=== PATIENT | female | born 1990 | race Caucasian/White ===

== ENCOUNTER 2021-12-23 14:57 | Inpatient (IN) ==
[2021-12-23] MEDS ORDERED: Haloperidol 5 mg/ml SDV IV/IM 5 MG/ML AMP IV ONE (15:09)
[2021-12-23] MEDS ORDERED: LORazepam 2 mg VIAL 1 ml IV ONE (15:09)
[2021-12-23] MEDS ORDERED: Lactated Ringers 1000 ml BAG 1,000 ML IV ONE (15:11)
[2021-12-23 15:30] LABS: ABS Lymphocytes 1.9 10^3/ul (1.0-4.8); ABS Neutrophils 8.6 10^3/ul (1.5-7.7); Eosinophil % 0.3 %; Hematocrit 44 % (35-47); Hemoglobin 14.6 g/dL (12.0-16.0); Lymphocyte % 16.7 %; Mean Corpuscular HGB Conc 33 g/dL (31-36); Mean Corpuscular Hemoglobin 30 pg (27-31); Mean Corpuscular Volume 92 fL (80-97); Platelet Count 293 10^3/uL (150-450); Red Blood Count 4.79 10^6 /uL (3.70-4.87); Red Cell Distribution Width 13 % (10-15); White Blood Count 11.6 10^3/uL (3.5-10.8)
[2021-12-23 15:54] LABS: High Sens Troponin Baseline 3 pg/mL (<15)
[2021-12-23 16:05] LABS: ALT 16 U/L (7-52); AST 17 U/L (13-39); Albumin 4.5 g/dL (3.2-5.2); Alcohol, S < 13 mg/dL (<13); Alkaline Phosphatase 65 U/L (35-149); Anion Gap 10 mmol/L (2-11); Blood Urea Nitrogen 7 mg/dL (6-24); CO2 Carbon Dioxide 24 mmol/L (22-32); Calcium 9.1 mg/dL (8.6-10.3); Chloride 103 mmol/L (101-111); Globulin 2.2 g/dL (2-4); Glucose 120 mg/dL (70-100); Magnesium 1.7 mg/dL (1.9-2.7); Potassium 3.5 mmol/L (3.5-5.0); Sodium 137 mmol/L (135-145); Total Protein 6.7 g/dL (6.4-8.9); eGFR CKD-EPI 111.3 (>60)
[2021-12-23 16:14] LABS: TSH Ultra Thyroid Stim Horm 0.74 mcIU/mL (0.34-5.60)
[2021-12-23 17:13] LABS: High Sensitivity Troponin 1 Hr 3 pg/mL (<15)
[2021-12-24 01:59] LABS: Urine Appearance Cloudy; Urine Bilirubin Negative (Negative); Urine Blood 1+ (Negative); Urine Color Yellow; Urine Glucose Negative (Negative); Urine Ketones Negative (Negative); Urine Nitrite Negative (Negative); Urine Protein Negative (Negative); Urine Specific Gravity 1.006 (1.002-1.030); Urine Urobilinogen Negative (Negative)
[2021-12-24] MEDS ORDERED: Nicotine PATCH 21 MG/24 HR PATCH TRANSDERM ONE (02:07)
[2021-12-24 02:08] LABS: Urine Bacteria 1+ (Absent); Urine Red Blood Cell Trace(0-2/hpf) (Absent); Urine Squamous Epithelial Cell Present (Absent); Urine White Blood Cell Trace(0-5/hpf) (Absent)
[2021-12-24 02:28] LABS: Urine Benzodiazepine Screen None Detected (None Detect); Urine Cannabinoids Screen Presumptive Positive (None Detect); Urine Opiates Screen None Detected (None Detect)
[2021-12-24] MEDS ORDERED: LORazepam 2 mg VIAL 1 ml IM ONE (02:58)
[2021-12-24] MEDS ORDERED: Lorazepam PYXIS KEY PRN (02:58)
[2021-12-24] MEDS ORDERED: Ziprasidone IM 20 mg VIAL 1 ml VIAL IM ONE (02:58)
[2021-12-24] MEDS ORDERED: Ziprasidone IM 20 mg VIAL 1 ml VIAL ONE (02:59)
[2021-12-24] MEDS: Nicotine GUM 4MG FRUIT FLAVOR PO PRN (08:23)
[2021-12-24] MEDS ORDERED: PERPHENAZINE 16 MG PO SCH (09:15)
[2021-12-24 10:06] LABS: Urine Benzodiazepine Screen None Detected (None Detect); Urine Buprenorphine Screen None Detected (None Detect); Urine Cannabinoids Screen Presumptive Positive (None Detect); Urine Fentanyl Screen None Detected (None Detect); Urine Hydrocodone Screen None Detected (None Detect); Urine Opiates Screen None Detected (None Detect)
[2021-12-24 11:50] LABS: Lithium < 0.10 mmol/L (0.6-1.2)
[2021-12-24] MEDS: Nicotine Lozenge mini 4 MG LOZNG.MINI MT PRN ×2 (16:26→20:22)
[2021-12-24] MEDS: Nicotine PATCH 21 MG/24 HR PATCH TRANSDERM SCH (16:31)
[2021-12-24] MEDS ORDERED: CMCS: Lithium Carb ER 300 mg TAB(NF) PO SCH (21:00)
[2021-12-25 08:37] LABS: HDL Cholesterol 61.3 mg/dL
[2021-12-25] MEDS: Nicotine PATCH 21 MG/24 HR PATCH TRANSDERM SCH (09:32)
[2021-12-25] MEDS: Al Hydrox/Mg Hydrox/Simet LIQ 30 ML UDC PO PRN ×3 (09:33→21:39)
[2021-12-25] MEDS: CMC:Lithium Carb ER 300 mg TAB(NF) PO SCH ×2 (12:01→22:56)
[2021-12-25] MEDS: Lithium Carbonate ER 450mg TAB PO SCH ×2 (12:01→22:56)
[2021-12-26] MEDS: CMC:Lithium Carb ER 300 mg TAB(NF) PO SCH ×2 (08:52→22:01)
[2021-12-26] MEDS: Nicotine PATCH 21 MG/24 HR PATCH TRANSDERM SCH (08:52)
[2021-12-26] MEDS: Lithium Carbonate ER 450mg TAB PO SCH ×2 (08:52→22:01)
[2021-12-26] MEDS: Nicotine Lozenge mini 4 MG LOZNG.MINI MT PRN ×2 (13:11→20:12)
[2021-12-27] MEDS: CMC:Lithium Carb ER 300 mg TAB(NF) PO SCH ×2 (09:07→21:11)
[2021-12-27] MEDS: Nicotine PATCH 21 MG/24 HR PATCH TRANSDERM SCH (09:07)
[2021-12-27] MEDS: Lithium Carbonate ER 450mg TAB PO SCH ×2 (09:07→21:11)
[2021-12-27] MEDS: Nicotine Lozenge mini 4 MG LOZNG.MINI MT PRN ×2 (09:44→15:40)
[2021-12-27] MEDS: Al Hydrox/Mg Hydrox/Simet LIQ 30 ML UDC PO PRN (17:47)
[2021-12-28] MEDS: Nicotine Lozenge mini 4 MG LOZNG.MINI MT PRN ×4 (05:30→18:31)
[2021-12-28] MEDS: Lithium Carbonate ER 450mg TAB PO SCH ×2 (09:12→21:16)
[2021-12-28] MEDS: CMC:Lithium Carb ER 300 mg TAB(NF) PO SCH ×2 (09:12→21:16)
[2021-12-28] MEDS: Nicotine PATCH 21 MG/24 HR PATCH TRANSDERM SCH (09:13)
[2021-12-29] MEDS: Nicotine Lozenge mini 4 MG LOZNG.MINI MT PRN ×4 (03:11→22:05)
[2021-12-29] MEDS: Nicotine PATCH 21 MG/24 HR PATCH TRANSDERM SCH (09:45)
[2021-12-29] MEDS: CMC:Lithium Carb ER 300 mg TAB(NF) PO SCH ×2 (09:45→20:17)
[2021-12-29] MEDS: Lithium Carbonate ER 450mg TAB PO SCH ×2 (09:45→20:17)
[2021-12-30] MEDS: Nicotine Lozenge mini 4 MG LOZNG.MINI MT PRN (04:21)
[2021-12-30] MEDS: Lithium Carbonate ER 450mg TAB PO SCH ×2 (08:01→19:24)
[2021-12-30] MEDS: Nicotine PATCH 21 MG/24 HR PATCH TRANSDERM SCH (08:02)
[2021-12-30] MEDS: CMC:Lithium Carb ER 300 mg TAB(NF) PO SCH ×2 (08:02→19:21)
[2021-12-31] MEDS: Nicotine Lozenge mini 4 MG LOZNG.MINI MT PRN (00:16)
[2021-12-31] MEDS: Lithium Carbonate ER 450mg TAB PO SCH ×3 (09:41→21:04)
[2021-12-31] MEDS: CMC:Lithium Carb ER 300 mg TAB(NF) PO SCH ×3 (09:41→21:04)
[2021-12-31] MEDS: Nicotine PATCH 21 MG/24 HR PATCH TRANSDERM SCH (09:41)
[2022-01-01] MEDS: Lithium Carbonate ER 450mg TAB PO SCH ×2 (08:43→21:17)
[2022-01-01] MEDS: Nicotine GUM 4MG FRUIT FLAVOR PO PRN ×3 (08:43→18:12)
[2022-01-01] MEDS: CMC:Lithium Carb ER 300 mg TAB(NF) PO SCH ×2 (08:43→21:17)
[2022-01-01] MEDS: Nicotine PATCH 21 MG/24 HR PATCH TRANSDERM SCH (08:44)
[2022-01-02] MEDS: Nicotine GUM 4MG FRUIT FLAVOR PO PRN ×5 (06:03→18:51)
[2022-01-02] MEDS: Lithium Carbonate ER 450mg TAB PO SCH ×2 (09:00→20:18)
[2022-01-02] MEDS: CMC:Lithium Carb ER 300 mg TAB(NF) PO SCH ×2 (09:00→20:17)
[2022-01-02] MEDS: Nicotine PATCH 21 MG/24 HR PATCH TRANSDERM SCH (09:09)
[2022-01-02] MEDS: Senna TAB 8.6 mg TAB PO SCH (14:51)
[2022-01-03] MEDS: Lithium Carbonate ER 450mg TAB PO SCH ×2 (09:01→21:29)
[2022-01-03] MEDS: Senna TAB 8.6 mg TAB PO SCH (09:03)
[2022-01-03] MEDS: CMC:Lithium Carb ER 300 mg TAB(NF) PO SCH ×2 (09:03→21:29)
[2022-01-03] MEDS: Nicotine PATCH 21 MG/24 HR PATCH TRANSDERM SCH (09:05)
[2022-01-03] MEDS: Nicotine GUM 4MG FRUIT FLAVOR PO PRN ×3 (10:10→16:25)
[2022-01-03] MEDS: Nicotine Lozenge mini 4 MG LOZNG.MINI MT PRN (17:56)
[2022-01-04] MEDS: Nicotine GUM 4MG FRUIT FLAVOR PO PRN ×2 (00:49→17:35)
[2022-01-04] MEDS: Lithium Carbonate ER 450mg TAB PO SCH ×4 (09:01→23:51)
[2022-01-04] MEDS: CMC:Lithium Carb ER 300 mg TAB(NF) PO SCH ×4 (09:02→20:40)
[2022-01-04] MEDS: Senna TAB 8.6 mg TAB PO SCH (09:04)
[2022-01-04] MEDS: Nicotine PATCH 21 MG/24 HR PATCH TRANSDERM SCH (09:04)
[2022-01-04] MEDS: Al Hydrox/Mg Hydrox/Simet LIQ 30 ML UDC PO PRN (16:44)
[2022-01-05] MEDS: Lithium Carbonate ER 450mg TAB PO SCH ×4 (00:16→20:29)
[2022-01-05] MEDS: CMC:Lithium Carb ER 300 mg TAB(NF) PO SCH ×3 (06:50→20:29)
[2022-01-05] MEDS: Senna TAB 8.6 mg TAB PO SCH (07:54)
[2022-01-05] MEDS: Nicotine PATCH 21 MG/24 HR PATCH TRANSDERM SCH (07:54)
[2022-01-05] MEDS: Nicotine Lozenge mini 4 MG LOZNG.MINI MT PRN (16:43)
[2022-01-05 19:37] LABS: Calcium 9.1 mg/dL (8.6-10.3); Lithium 0.75 mmol/L (0.6-1.2); Potassium 4.1 mmol/L (3.5-5.0); Total Bilirubin 0.5 mg/dL (0.2-1.0)
[2022-01-06] MEDS: Senna TAB 8.6 mg TAB PO SCH (07:14)
[2022-01-06] MEDS: Lithium Carbonate ER 450mg TAB PO SCH ×2 (07:14→20:04)
[2022-01-06] MEDS: CMC:Lithium Carb ER 300 mg TAB(NF) PO SCH ×2 (07:15→20:04)
[2022-01-06] MEDS: Nicotine PATCH 21 MG/24 HR PATCH TRANSDERM SCH (07:30)
[2022-01-06] MEDS: Nicotine GUM 4MG FRUIT FLAVOR PO PRN (16:51)
[2022-01-06] MEDS: Nicotine Lozenge mini 4 MG LOZNG.MINI MT PRN (19:12)
[2022-01-07] MEDS: Senna TAB 8.6 mg TAB PO SCH (08:07)
[2022-01-07] MEDS: CMC:Lithium Carb ER 300 mg TAB(NF) PO SCH ×2 (08:07→19:23)
[2022-01-07] MEDS: Lithium Carbonate ER 450mg TAB PO SCH ×2 (08:07→19:23)
[2022-01-07] MEDS: Nicotine PATCH 21 MG/24 HR PATCH TRANSDERM SCH (09:10)
[2022-01-07] MEDS: Nicotine GUM 4MG FRUIT FLAVOR PO PRN (19:25)
[2022-01-07] MEDS: Al Hydrox/Mg Hydrox/Simet LIQ 30 ML UDC PO PRN (20:20)
[2022-01-08] MEDS: Nicotine PATCH 21 MG/24 HR PATCH TRANSDERM SCH (09:50)
[2022-01-08] MEDS: Nicotine Lozenge mini 4 MG LOZNG.MINI MT PRN ×2 (09:50→12:20)
[2022-01-08] MEDS: Senna TAB 8.6 mg TAB PO SCH (10:04)
[2022-01-08] MEDS: CMC:Lithium Carb ER 300 mg TAB(NF) PO SCH ×2 (10:41→21:46)
[2022-01-08] MEDS: Lithium Carbonate ER 450mg TAB PO SCH (10:41)
[2022-01-08] MEDS: Al Hydrox/Mg Hydrox/Simet LIQ 30 ML UDC PO PRN (12:20)
[2022-01-08] MEDS: Nicotine GUM 4MG FRUIT FLAVOR PO PRN (15:42)
[2022-01-08] MEDS ORDERED: PERPHENAZINE 8 MG PO SCH (21:00)
[2022-01-09] MEDS: Nicotine GUM 4MG FRUIT FLAVOR PO PRN ×5 (04:50→20:38)
[2022-01-09] MEDS: Nicotine PATCH 21 MG/24 HR PATCH TRANSDERM SCH (08:14)
[2022-01-09] MEDS: Senna TAB 8.6 mg TAB PO SCH (08:15)
[2022-01-09] MEDS: CMC:Lithium Carb ER 300 mg TAB(NF) PO SCH (20:36)
[2022-01-09] MEDS: CMCS: Perphenazine 8 mg TAB (NF) PO SCH (20:38)
[2022-01-10] MEDS: Nicotine Lozenge mini 4 MG LOZNG.MINI MT PRN ×2 (11:00→13:40)
[2022-01-10] MEDS: Senna TAB 8.6 mg TAB PO SCH (11:00)
[2022-01-10] MEDS: Nicotine PATCH 21 MG/24 HR PATCH TRANSDERM SCH (11:01)
[2022-01-10] MEDS: CMCS: Perphenazine 8 mg TAB (NF) PO SCH (20:36)
[2022-01-10] MEDS: CMC:Lithium Carb ER 300 mg TAB(NF) PO SCH (20:36)
[2022-01-10] MEDS: Nicotine GUM 4MG FRUIT FLAVOR PO PRN (20:38)
[2022-01-11] MEDS: Nicotine PATCH 21 MG/24 HR PATCH TRANSDERM SCH (08:54)
[2022-01-11] MEDS: Senna TAB 8.6 mg TAB PO SCH (08:55)
[2022-01-11] MEDS: Nicotine GUM 4MG FRUIT FLAVOR PO PRN (08:55)
[2022-01-11] MEDS: Nicotine Lozenge mini 4 MG LOZNG.MINI MT PRN (17:43)
[2022-01-11] MEDS: CMC:Lithium Carb ER 300 mg TAB(NF) PO SCH (20:27)
[2022-01-11] MEDS: CMCS: Perphenazine 8 mg TAB (NF) PO SCH (20:28)
[2022-01-12] MEDS: Senna TAB 8.6 mg TAB PO SCH (09:54)
[2022-01-12] MEDS: Nicotine PATCH 21 MG/24 HR PATCH TRANSDERM SCH (09:55)
[2022-01-12] MEDS: Nicotine GUM 4MG FRUIT FLAVOR PO PRN ×3 (09:56→18:53)
[2022-01-12] MEDS: CMCS: Perphenazine 8 mg TAB (NF) PO SCH (19:52)
[2022-01-12] MEDS: CMC:Lithium Carb ER 300 mg TAB(NF) PO SCH (19:53)
[2022-01-13] MEDS: Nicotine PATCH 21 MG/24 HR PATCH TRANSDERM SCH (07:41)
[2022-01-13] MEDS: Senna TAB 8.6 mg TAB PO SCH (07:42)
[2022-01-13] MEDS: Nicotine GUM 4MG FRUIT FLAVOR PO PRN (12:38)
[2022-01-13] MEDS: Al Hydrox/Mg Hydrox/Simet LIQ 30 ML UDC PO PRN (12:38)
[2022-01-13] MEDS: CMC:Lithium Carb ER 300 mg TAB(NF) PO SCH (20:30)
[2022-01-13] MEDS: CMCS: Perphenazine 8 mg TAB (NF) PO SCH (20:32)
[2022-01-14] MEDS: Nicotine GUM 4MG FRUIT FLAVOR PO PRN (09:09)
[2022-01-14] MEDS: Senna TAB 8.6 mg TAB PO SCH (09:13)
[2022-01-14] MEDS: Nicotine PATCH 21 MG/24 HR PATCH TRANSDERM SCH (09:13)
[2022-01-14 09:58] VITALS: BP 119/54
== END 2022-01-14 14:35 | disposition home or self-care (01) | DRG 885 ==
LOC: ED 14:57 → EDHOLD 12-24 09:07 → BSU 12-24 11:15
PROVIDERS: ADMIT Psychiatry & Neurology Psychiatry; ATTEND Psychiatry & Neurology Psychiatry

== ENCOUNTER 2022-02-12 08:18 | Inpatient (IN) ==
[2022-02-12] MEDS ORDERED: Lorazepam PYXIS KEY PRN (09:01)
[2022-02-12] MEDS ORDERED: LORazepam 2 mg VIAL 1 ml IM ONE (09:01)
[2022-02-12 09:33] LABS: ABS Basophils 0.1 10^3/ul (0-0.2); ABS Lymphocytes 1.9 10^3/ul (1.0-4.8); ABS Neutrophils 6.2 10^3/ul (1.5-7.7); Eosinophil % 0.4 %; Hematocrit 41 % (35-47); Hemoglobin 13.6 g/dL (12.0-16.0); Lymphocyte % 20.4 %; Mean Corpuscular HGB Conc 33 g/dL (31-36); Mean Corpuscular Hemoglobin 30 pg (27-31); Mean Corpuscular Volume 91 fL (80-97); Mean Platelet Volume 8.6 fL (7.4-10.4); Nucleated Red Blood Cells % 0.1; Platelet Count 171 10^3/uL (150-450); Red Blood Count 4.54 10^6 /uL (3.70-4.87); Red Cell Distribution Width 14 % (10-15); White Blood Count 9.2 10^3/uL (3.5-10.8)
[2022-02-12 09:44] LABS: ALT 24 U/L (7-52); AST 30 U/L (13-39); Acetaminophen < 15 mcg/mL; Albumin 4.4 g/dL (3.2-5.2); Albumin/Globulin Ratio 1.9 (1-3); Alcohol, S < 13 mg/dL (<13); Alkaline Phosphatase 71 U/L (35-149); Anion Gap 9 mmol/L (2-11); Blood Urea Nitrogen 10 mg/dL (6-24); CO2 Carbon Dioxide 30 mmol/L (22-32); Calcium 9.4 mg/dL (8.6-10.3); Chloride 101 mmol/L (101-111); Globulin 2.3 g/dL (2-4); Glucose 90 mg/dL (70-100); Salicylate < 2.50 mg/dL (<30); Sodium 140 mmol/L (135-145); Total Protein 6.7 g/dL (6.4-8.9); eGFR CKD-EPI 119.6 (>60)
[2022-02-12 09:52] LABS: Urine Benzodiazepine Screen None Detected (None Detect); Urine Cannabinoids Screen None Detected (None Detect); Urine Opiates Screen None Detected (None Detect)
[2022-02-12 09:59] LABS: TSH Ultra Thyroid Stim Horm 1.48 mcIU/mL (0.34-5.60)
[2022-02-12 10:16] LABS: Urine Appearance Clear; Urine Bilirubin Negative (Negative); Urine Blood 1+ (Negative); Urine Color Straw; Urine Glucose Negative (Negative); Urine Ketones Negative (Negative); Urine Nitrite Negative (Negative); Urine Protein Negative (Negative); Urine Specific Gravity 1.005 (1.002-1.030); Urine Urobilinogen Negative (Negative)
[2022-02-12 10:55] LABS: Lithium < 0.10 mmol/L (0.6-1.2)
[2022-02-12 10:55] LABS: Urine Bacteria 1+ (Absent); Urine Red Blood Cell Trace(0-2/hpf) (Absent); Urine Squamous Epithelial Cell Present (Absent); Urine White Blood Cell Absent (Absent)
[2022-02-12] MEDS ORDERED: Perphenazine 8 mg TAB (NF) PO SCH (21:00)
[2022-02-13 08:09] LABS: Cholesterol 142 mg/dL; HDL Cholesterol 59.6 mg/dL; LDL Cholesterol 59 mg/dL; Triglycerides 117 mg/dL
[2022-02-13 08:53] LABS: HCG Pregnancy < 0.60 mIU/mL
[2022-02-13] MEDS ORDERED: COVID VACC, BIVAL PFIZER-TRIS 30 MCG/0.3 ML SYR IM ONE (12:00)
[2022-02-13] MEDS ORDERED: Influenza vaccine *QUAD* *2022-23* 0.5 ML SYRINGE IM ONE (12:00)
[2022-02-13] MEDS: Vitamin THERAPEUTIC TAB PO SCH (13:39)
[2022-02-13] MEDS: Nicotine Lozenge mini 2 MG LOZNG.MINI MT PRN ×2 (15:13→18:59)
[2022-02-14] MEDS ORDERED: chlorproMAZINE 25 MG/ML 2 ML (50 MG) ONE (05:05)
[2022-02-14] MEDS: Vitamin THERAPEUTIC TAB PO SCH (09:23)
[2022-02-14] MEDS: Nicotine Lozenge mini 2 MG LOZNG.MINI MT PRN ×3 (10:17→22:04)
[2022-02-14] MEDS ORDERED: Benztropine 2 mg AMP 1 MG/ML 2 ml AMP IM ONE (17:20)
[2022-02-14] MEDS ORDERED: Benztropine 2 mg AMP 1 MG/ML 2 ml AMP ONE (17:23)
[2022-02-15] MEDS: Nicotine Lozenge mini 2 MG LOZNG.MINI MT PRN ×4 (00:53→18:49)
[2022-02-15] MEDS: OLANZapine 10 mg TAB*ODT PO PRN (07:22)
[2022-02-15] MEDS: Vitamin THERAPEUTIC TAB PO SCH (07:59)
[2022-02-16] MEDS: OLANZapine 10 mg TAB*ODT PO PRN (02:21)
[2022-02-16] MEDS: Nicotine Lozenge mini 2 MG LOZNG.MINI MT PRN ×4 (02:21→18:48)
[2022-02-16] MEDS: Vitamin THERAPEUTIC TAB PO SCH (08:46)
[2022-02-16] MEDS ORDERED: Influenza vaccine *QUAD* *2022-23* 0.5 ML SYRINGE IM ONE (09:00)
[2022-02-16] MEDS ORDERED: COVID VACC, BIVAL PFIZER-TRIS 30 MCG/0.3 ML SYR IM ONE (09:00)
[2022-02-16] MEDS ORDERED: COVID VACC, BIVAL MODERNA 50 MCG/0.5 ML SYR IM ONE (09:00)
[2022-02-17] MEDS: Nicotine Lozenge mini 2 MG LOZNG.MINI MT PRN ×4 (04:57→19:52)
[2022-02-17] MEDS: Vitamin THERAPEUTIC TAB PO SCH (15:37)
[2022-02-18] MEDS: Nicotine Lozenge mini 2 MG LOZNG.MINI MT PRN ×4 (01:58→16:18)
[2022-02-18] MEDS: Vitamin THERAPEUTIC TAB PO SCH (07:39)
[2022-02-18] MEDS: Al Hydrox/Mg Hydrox/Simet LIQ 30 ML UDC PO PRN ×2 (12:18→18:32)
[2022-02-19] MEDS: Nicotine Lozenge mini 2 MG LOZNG.MINI MT PRN ×4 (07:27→20:50)
[2022-02-19] MEDS: Vitamin THERAPEUTIC TAB PO SCH (08:36)
[2022-02-19] MEDS: Al Hydrox/Mg Hydrox/Simet LIQ 30 ML UDC PO PRN (18:37)
[2022-02-20] MEDS: Nicotine Lozenge mini 2 MG LOZNG.MINI MT PRN ×3 (11:14→20:37)
[2022-02-20] MEDS: Vitamin THERAPEUTIC TAB PO SCH (13:54)
[2022-02-20] MEDS: Lithium Carbonate ER 450mg TAB PO SCH (20:38)
[2022-02-21] MEDS: Vitamin THERAPEUTIC TAB PO SCH (07:43)
[2022-02-21] MEDS: Nicotine Lozenge mini 2 MG LOZNG.MINI MT PRN ×3 (10:05→19:14)
[2022-02-21] MEDS: Lithium Carbonate ER 450mg TAB PO SCH (20:15)
[2022-02-22] MEDS: Vitamin THERAPEUTIC TAB PO SCH (07:43)
[2022-02-22] MEDS: Nicotine Lozenge mini 2 MG LOZNG.MINI MT PRN ×4 (07:45→18:54)
[2022-02-22] MEDS: Lithium Carbonate ER 450mg TAB PO SCH (20:05)
[2022-02-23] MEDS: Nicotine Lozenge mini 2 MG LOZNG.MINI MT PRN ×3 (07:35→14:51)
[2022-02-23] MEDS: Vitamin THERAPEUTIC TAB PO SCH (07:36)
[2022-02-23] MEDS ORDERED: Benzocaine/Menthol LOZ ONE (16:05)
[2022-02-23] MEDS: Lithium Carbonate ER 450mg TAB PO SCH (20:55)
[2022-02-24] MEDS: Nicotine Lozenge mini 2 MG LOZNG.MINI MT PRN ×4 (07:21→17:25)
[2022-02-24] MEDS: Benzocaine (plain) Lozenge 15 MG MT PRN ×4 (07:21→20:34)
[2022-02-24] MEDS: Vitamin THERAPEUTIC TAB PO SCH (08:20)
[2022-02-24] MEDS: Lithium Carbonate ER 450mg TAB PO SCH (20:25)
[2022-02-25] MEDS: Benzocaine (plain) Lozenge 15 MG MT PRN ×2 (06:16→14:12)
[2022-02-25] MEDS: Nicotine Lozenge mini 2 MG LOZNG.MINI MT PRN ×2 (07:29→14:12)
[2022-02-25] MEDS: Vitamin THERAPEUTIC TAB PO SCH (12:01)
[2022-02-25] MEDS: Lithium Carbonate ER 450mg TAB PO SCH (20:49)
[2022-02-26] MEDS: Nicotine Lozenge mini 2 MG LOZNG.MINI MT PRN ×3 (08:41→17:46)
[2022-02-26] MEDS: Vitamin THERAPEUTIC TAB PO SCH (08:48)
[2022-02-26] MEDS: Benzocaine (plain) Lozenge 15 MG MT PRN ×2 (09:57→14:56)
[2022-02-26] MEDS: Lithium Carbonate ER 450mg TAB PO SCH (20:04)
[2022-02-27] MEDS: Vitamin THERAPEUTIC TAB PO SCH ×2 (10:08→12:19)
[2022-02-27] MEDS: Nicotine Lozenge mini 2 MG LOZNG.MINI MT PRN ×2 (11:05→15:45)
[2022-02-27] MEDS: Benzocaine (plain) Lozenge 15 MG MT PRN (12:19)
[2022-02-27] MEDS: Lithium Carbonate ER 450mg TAB PO SCH (20:04)
[2022-02-28] MEDS: Vitamin THERAPEUTIC TAB PO SCH (07:35)
[2022-02-28] MEDS: Nicotine Lozenge mini 2 MG LOZNG.MINI MT PRN ×4 (07:35→19:22)
[2022-02-28] MEDS: Lithium Carbonate ER 450mg TAB PO SCH (20:11)
[2022-03-01] MEDS: Vitamin THERAPEUTIC TAB PO SCH (09:04)
[2022-03-01] MEDS: Nicotine Lozenge mini 2 MG LOZNG.MINI MT PRN ×2 (12:39→17:25)
[2022-03-01] MEDS: Lithium Carbonate ER 450mg TAB PO SCH (20:03)
[2022-03-02] MEDS ORDERED: Paliperidone SUSTENNA 234 MG/1.5 ML IM ONE (08:59)
[2022-03-02] MEDS: Vitamin THERAPEUTIC TAB PO SCH (09:58)
[2022-03-02] MEDS: Nicotine Lozenge mini 2 MG LOZNG.MINI MT PRN ×4 (09:59→17:48)
[2022-03-02] MEDS: Lithium Carbonate ER 450mg TAB PO SCH (20:11)
[2022-03-03 08:52] VITALS: BP 107/63
[2022-03-03] MEDS: Nicotine Lozenge mini 2 MG LOZNG.MINI MT PRN ×2 (08:58→12:09)
[2022-03-03] MEDS: Vitamin THERAPEUTIC TAB PO SCH (08:58)
== END 2022-03-03 15:48 | disposition home or self-care (01) | DRG 753 ==
LOC: ED 08:18 → EDHOLD 11:57 → BSU 13:21
PROVIDERS: ADMIT Psychiatry & Neurology Psychiatry; ATTEND Psychiatry & Neurology Psychiatry

== ENCOUNTER 2023-07-21 14:18 | Inpatient (IN) ==
[2023-07-21] MEDS: OLANZapine 10 mg TAB*ODT PO ONE (15:06)
[2023-07-21 15:26] LABS: ABS Basophils 0.1 10^3/uL (0.0-0.1); ABS Eosinophils 0.2 10^3/uL (0.0-0.5); ABS Lymphocytes 2.7 10^3/uL (1.0-4.8); ABS Monocytes 1.3 10^3/uL (0.0-0.9); ABS Neutrophils 10.4 10^3/uL (1.5-7.6); ABS Nucleated RBC 0.01 10^3/ul; Eosinophil % 1.2 %; Hematocrit 39.3 % (35-45); Lymphocyte % 18.4 %; Mean Corpuscular Hemoglobin 30.9 pg (27-33); Mean Corpuscular Hgb Conc 33.2 g/dL (31-36); Mean Corpuscular Volume 93.2 fL (80-97); Mean Platelet Volume 7.7 fL (7.5-11.2); Platelet Count 355 10^3/uL (150-450); Red Blood Count 4.22 10^6/uL (3.63-4.92); Red Cell Distribution Width 13.2 % (12-17); White Blood Count 14.7 10^3/uL (3.8-11.8)
[2023-07-21 16:08] LABS: Urine Appearance Clear; Urine Bilirubin Negative (Negative); Urine Blood Negative (Negative); Urine Color Colorless; Urine Glucose Negative (Negative); Urine Ketones Negative (Negative); Urine Nitrite Negative (Negative); Urine Protein Negative (Negative); Urine Specific Gravity 1.003 (1.002-1.030); Urine Urobilinogen Negative (Negative); Urine pH 6.5 (5.0-8.0)
[2023-07-21 16:28] LABS: ALT 21 U/L (7-52); AST 29 U/L (13-39); Acetaminophen < 15 mcg/mL; Albumin 4.3 g/dL (3.2-5.2); Alcohol, S < 13 mg/dL (<13); Alkaline Phosphatase 87 U/L (35-149); Anion Gap 8 mmol/L (2-16); Blood Urea Nitrogen 15 mg/dL (6-24); CO2 Carbon Dioxide 24 mmol/L (22-32); Calcium 9.1 mg/dL (8.6-10.3); Chloride 106 mmol/L (101-111); Creatine Kinase 833 U/L (10-223); Creatinine, Serum 0.72 mg/dL (0.51-0.95); Globulin 2.2 g/dL (2-4); Glucose 123 mg/dL (70-100); Potassium 3.9 mmol/L (3.5-5.0); Salicylate < 2.50 mg/dL (<30); Sodium 138 mmol/L (135-145); Total Bilirubin 0.4 mg/dL (0.2-1.0); Total Protein 6.5 g/dL (6.4-8.9); eGFR CKD-EPI 111.8 (>60)
[2023-07-21 16:30] LABS: Urine Benzodiazepine Screen None Detected (None Detect); Urine Cannabinoids Screen Presumptive Positive (None Detect); Urine Opiates Screen None Detected (None Detect)
[2023-07-21 16:41] LABS: HCG Pregnancy < 0.60 mIU/mL
[2023-07-21 16:50] LABS: TSH Ultra Thyroid Stim Horm 1.35 mcIU/mL (0.34-5.60)
[2023-07-21] MEDS ORDERED: LORazepam 2 mg VIAL 1 ml ONE (22:36)
[2023-07-21] MEDS: LORazepam 2 mg VIAL 1 ml IM ONE (22:40)
[2023-07-21] MEDS ORDERED: Lorazepam PYXIS KEY PRN (22:40)
[2023-07-22] MEDS: Nicotine GUM 2MG FRUIT FLAVOR PO PRN (01:21)
[2023-07-22] MEDS: Vitamin THERAPEUTIC TAB PO SCH (09:47)
[2023-07-23 08:06] LABS: HDL Cholesterol 54.7 mg/dL
[2023-07-23] MEDS: Nicotine PATCH 21 MG/24 HR PATCH TRANSDERM ONE (14:48)
[2023-07-23] MEDS: Nicotine PATCH 14 MG/24 HR PATCH TRANSDERM SCH (16:44)
[2023-07-23] MEDS: Al Hydrox/Mg Hydrox/Simet LIQ 30 ML UDC PO PRN (18:10)
[2023-07-26] MEDS ORDERED: COVID VAC 23-24(12+)(Moderna) SYR 0.5 ML IM ONE (09:00)
[2023-08-17 10:55] VITALS: BP 124/62
== END 2023-08-17 11:30 | disposition short-term general hospital (02) | DRG 885 ==
LOC: ED 14:18 → EDHOLD 23:17 → BSU 23:39
PROVIDERS: ADMIT Psychiatry & Neurology Psychiatry; ATTEND Psychiatry & Neurology Psychiatry